=== PATIENT | male | born 1970 | race Caucasian/White ===

== ENCOUNTER 2019-04-10 11:16 | Day surgery (SDC) ==
--- NOTE | 2019-04-04 09:17 | EKG Report ---
Test Performed on : 04/04/2019 09:00:28 AM Test Reason : PAT Blood Pressure : / mmHG Vent. Rate : 070 BPM Atrial Rate : 070 BPM P-R Int : 188 ms QRS Dur : 088 ms QT Int : 382 ms P-R-T Axes : 050 -02 033 degrees QTc Int : 412 ms Normal sinus rhythm. with sinus arrhythmia. Normal ECG No previous ECGs available Confirmed by Mason SHIRLEY, Kunal ([id number]) on 04/04/2019 4:55:25 PM
[2019-04-04 09:20] LABS: URINE SOURCE CLEAN CATCH
[2019-04-04 09:26] LABS: BASO# 0.06 X1000 (0.0-0.2); BASO% 0.6 % (0.0-0.8); EOS% 3.8 % (0.0-10.0); HEMATOCRIT 50.8 % (42.0-52.0); HEMOGLOBIN 17.1 g/dL (14.0-18.0); IMM GRAN# 0.02 X1000 (0.0-0.04); IMM GRAN% 0.2 % (0.0-0.5); LYMPH% 24.5 % (20.5-51.1); MCH 31.6 PG (27-31); MCHC 33.7 g/dL (33-37); MCV 93.9 FL (81-99); MONO# 0.72 X1000 (0.11-0.59); MONO% 6.8 % (1.7-9.3); MPV 8.9 FL (7.4-10.4); NEUT# 6.83 X1000 (1.4-6.5); NEUT% 64.1 % (42.2-75.2); PLT 307 X1000 (130-400); RBC 5.41 XMIL (4.7-6.1); RDW 13.2 % (11.5-14.5); WBC 10.63 X1000 (4.8-10.8)
[2019-04-04 09:31] LABS: BILIRUBIN URINE NEGATIVE (NEGATIVE); BLOOD URINE NEGATIVE (NEGATIVE); COLOR YELLOW; GLUCOSE URINE NEGATIVE (NEGATIVE); KETONE URINE NEGATIVE (NEGATIVE); LEUKOCYTES URINE NEGATIVE (NEGATIVE); NITRITE URINE NEGATIVE (NEGATIVE); PH URINE 5.5; PROTEIN URINE NEGATIVE (NEGATIVE); SP GRAVITY URINE 1.015; TURBIDITY URINE CLEAR (CLEAR); UROBILINOGEN URINE NORMAL (NORMAL)
[2019-04-04 09:33] LABS: UR EPITHELIAL CELLS <10 /HPF (<10); URINE BACTERIA NEGATIVE /HPF; URINE RBC <10 /HPF (<10); URINE WBC <10 /HPF (<10)
[2019-04-04 09:38] LABS: INR 0.99; PROTIME 13.2 Seconds (11.0-16.0)
[2019-04-04 09:39] LABS: PTT 29.4 Seconds (22.3-41.8)
[2019-04-04 10:28] LABS: AGAP 16; BUN 15 mg/dL (8-22); CALCIUM 9.5 mg/dL (8.8-10.2); CHLORIDE 100 mmol/L (98-107); COSMO 278; CREATININE 1.1 mg/dL (0.7-1.2); ESTIMATED GFR > 60; GLUCOSE 99 mg/dL (70-104); POTASSIUM 4.5 mmol/L (3.5-5.1); SODIUM 139 mmol/L (136-145); TCO2 23 mmol/L (25-35)
[2019-04-04 11:47] LABS: HEMOGLOBIN A1C 5.7 % (4.8-6.0)
[2019-04-10] MEDS ORDERED: XYLOCAINE-MPF 2% ONE ×2 (11:34→13:01)
[2019-04-10] MEDS ORDERED: DIPRIVAN 1% ONE ×3 (11:34→15:46)
[2019-04-10] MEDS ORDERED: LYRICA ONE (12:05)
[2019-04-10] MEDS ORDERED: REGLAN ONE (12:05)
[2019-04-10] MEDS ORDERED: PEPCID ONE (12:05)
[2019-04-10] MEDS ORDERED: LR 1,000 ML ONE (12:05)
[2019-04-10] MEDS ORDERED: KEFZOL 1 GM/D5W 2 GM/100 ML IVPB ONE (12:05)
[2019-04-10] MEDS ORDERED: CELEBREX ONE (12:05)
[2019-04-10] MEDS ORDERED: COLACE ONE (12:05)
[2019-04-10] MEDS ORDERED: DIPRIVAN 1% 500 MG/50 ML BOTTLE ONE (12:54)
[2019-04-10] MEDS ORDERED: DURAMORPH ONE (12:56)
[2019-04-10] MEDS ORDERED: SENSORCAINE-MPF 0.5%/EPI 1:200,000 ONE (12:57)
[2019-04-10] MEDS ORDERED: VANCOMYCIN ONE (12:57)
[2019-04-10] MEDS ORDERED: SODIUM CHLORIDE 0.9% ONE (12:57)
[2019-04-10] MEDS ORDERED: TORADOL ONE (12:57)
[2019-04-10] MEDS ORDERED: EXPAREL 1.3% ONE (12:58)
[2019-04-10] MEDS ORDERED: NEOSPORIN G.U. IRRIGANT ONE (12:58)
[2019-04-10] MEDS ORDERED: VERSED ONE ×2 (12:59→13:07)
[2019-04-10] MEDS ORDERED: MARCAINE 0.5% PF ONE (13:02)
[2019-04-10] MEDS ORDERED: CYKLOKAPRON 1,000 MG/NS 2,000 MG/200 ML IVPB ONE (13:16)
[2019-04-10] MEDS ORDERED: FENTANYL ONE (13:22)
[2019-04-10] MEDS ORDERED: OFIRMEV 1000 MG/ISOTONIC SOLN 1,000 MG/100 ML BOTTLE ONE (13:39)
[2019-04-10] MEDS ORDERED: ZOFRAN ONE (13:39)
[2019-04-10] MEDS ORDERED: DECADRON ONE (13:39)
[2019-04-10] MEDS ORDERED: EPHEDRINE ONE (14:02)
[2019-04-10] MEDS ORDERED: D5W 1,000 ML ONE (16:56)
[2019-04-10] MEDS ORDERED: ZOFRAN IV PRN (17:30)
[2019-04-10] MEDS ORDERED: MORPHINE IV PRN ×3 (17:30)
[2019-04-10] MEDS ORDERED: OXY IR PO PRN ×2 (17:30)
[2019-04-10] MEDS ORDERED: ZOFRAN PO PRN (17:30)
[2019-04-10] MEDS ORDERED: D5W 1,000 ML IV SCH (17:45)
[2019-04-10] MEDS ORDERED: FLU VACCINE IM ONE (18:12)
[2019-04-10] MEDS: ULTRAM PO SCH (18:33)
[2019-04-10 18:58] LABS: URINE SOURCE CATH
[2019-04-10 19:02] LABS: BILIRUBIN URINE NEGATIVE (NEGATIVE); BLOOD URINE NEGATIVE (NEGATIVE); COLOR YELLOW; GLUCOSE URINE NEGATIVE (NEGATIVE); KETONE URINE NEGATIVE (NEGATIVE); LEUKOCYTES URINE NEGATIVE (NEGATIVE); NITRITE URINE NEGATIVE (NEGATIVE); PROTEIN URINE NEGATIVE (NEGATIVE); SP GRAVITY URINE 1.018; TURBIDITY URINE CLEAR (CLEAR); UROBILINOGEN URINE NORMAL (NORMAL)
[2019-04-10 19:03] LABS: UR EPITHELIAL CELLS <10 /HPF (<10); URINE BACTERIA NEGATIVE /HPF; URINE RBC <10 /HPF (<10); URINE WBC <10 /HPF (<10)
[2019-04-10] MEDS: PERIDEX MT SCH (20:45)
[2019-04-10] MEDS: TYLENOL PO SCH (20:46)
[2019-04-10] MEDS: CELEBREX PO SCH (20:46)
[2019-04-10] MEDS: LYRICA PO SCH (20:47)
[2019-04-10] MEDS: COLACE PO SCH (20:47)
[2019-04-10] MEDS: KEFZOL 2 GM/D5W 2 GM/50 ML IVPB IV SCH (20:49)
[2019-04-11] MEDS: ULTRAM PO SCH ×2 (00:02→05:25)
[2019-04-11] MEDS: KEFZOL 2 GM/D5W 2 GM/50 ML IVPB IV SCH (05:25)
[2019-04-11] MEDS: TYLENOL PO SCH (05:26)
[2019-04-11] MEDS ORDERED: ASPIRIN PO SCH (06:00)
[2019-04-11 07:26] LABS: HEMATOCRIT 45.6 % (42.0-52.0); HEMOGLOBIN 14.9 g/dL (14.0-18.0)
--- NOTE | 2019-04-11 08:14 | ORTHOPAEDICS PROGRESS NOTE ---
DATE: 04/11/2019 SUBJECTIVE: No acute events. The patient is awake and alert in his room. He states he is having no pain in the knee from surgery. His IceMan machine is running. He is able to do straight leg raise. OBJECTIVE: Vital Signs: Afebrile. Vital signs stable. Extremities: Examination of the right lower extremity shows Brad wrap and surgical dressing to be clean, dry, and intact. Thigh and calf are soft and compressible. He is able to do a straight leg raise. He is able to actively bend his knee to 90 degrees. IceMan machine is in place. Motor is intact, EHL, tibialis anterior, gastrocsoleus complex. Sensation intact to light touch, L3-S1. Dorsalis pedis pulses palpable and equal bilaterally. ASSESSMENT: A 48-year-old male status post right knee unicompartmental arthroplasty. PLAN: 1. The patient will be weightbearing as tolerated, right lower extremity. Physical Therapy to work with him in the morning on ambulation and gait training. 2. IceMan machine at all times. 3. Advance to regular diet. 4. 24 hours of Ancef. 5. Aspirin for DVT prophylaxis. LIDYA hose will also be placed and worn at all times for the first 2 weeks. 6. Disposition. The patient will plan on being discharged to home tomorrow morning after therapy if he is doing well. Will discontinue Contreras catheter in the morning. Further recommendations to follow.
[2019-04-11 08:29] LABS: AGAP 17; BUN 14 mg/dL (8-22); CALCIUM 9.3 mg/dL (8.8-10.2); CHLORIDE 98 mmol/L (98-107); COSMO 276; CREATININE 1.1 mg/dL (0.7-1.2); ESTIMATED GFR > 60; GLUCOSE 166 mg/dL (70-104); POTASSIUM 4.4 mmol/L (3.5-5.1); SODIUM 136 mmol/L (136-145); TCO2 21 mmol/L (25-35)
[2019-04-11 08:32] VITALS: BP 116/62
--- NOTE | 2019-04-11 08:34 | OPERATIVE NOTE ---
PROCEDURE DATE: 04/10/2019 PREOPERATIVE DIAGNOSIS: Right knee anterior medial osteoarthritis. POSTOPERATIVE DIAGNOSIS: Right knee anterior medial osteoarthritis. PROCEDURE PERFORMED: Right knee unicompartmental knee arthroplasty. SURGEON: Silas Carrington M.D. BREAST SPLITTER: Janneth Shipman. ANESTHESIA: Spinal with an adductor canal block. COMPLICATIONS: None. SPECIMENS: None. DRAINS: None. BLOOD LOSS: 100 mL. IMPLANTS: Biomet [place] partial knee arthroplasty system was used with a size D right medial tibial tray, a large twin peg femoral component, with a large size 4 mm thick meniscal bearing. INDICATIONS FOR PROCEDURE: Mr. Cummings is a 48-year-old gentleman who has been followed in clinic for complaints of right knee pain. He tried and failed conservative treatment modalities, including physical therapy, injections, and oral anti-inflammatories. MRI was done showing a medial meniscal root tear, as well as x-rays and MRI findings of [id number] anteromedial osteoarthritis. His ACL was found to be intact. He had a small area of lateral condyle fissuring. However, no full-thickness cartilage loss in the lateral compartment. Stress x-rays taken in the office demonstrated maintenance of lateral joint space and correction of his varus deformity. Given all of these findings and his age, the decision was made to proceed with partial versus total knee arthroplasty. Risks, benefits, and alternative therapies were discussed with the patient regarding surgery. Risks of surgery, include but are not limited to, risks of bleeding, infection, damage to nerves and vessels around the area, continued pain following surgery, dislocation of the bearing, and need for revision surgery. There is also a risk of anesthesia, including blood clot, stroke, heart attack, and even . The patient understands these risks. All questions were answered. Informed consent was obtained. PROCEDURE IN DETAIL: Mr. Cummings was identified by wristband, and greeted in the preop holding area on 04/10/2019. His right lower extremity, which was the operative site, was marked with indelible ink per [facility] Sign Your Site protocol. Following this, the patient was transferred back to the operating room for surgery. Upon entering the OR, adductor canal block as well as spinal anesthetic was placed. The patient was then placed in the supine position on the Skytron table. All bony prominences were well padded. The right lower extremity was then prepped and draped in routine sterile fashion. Formal time-out was performed, confirming correct patient, procedure, operative site, operative side, administration of preop antibiotics. Everyone was in agreement. The patient received 2 grams of Ancef prior to incision. Esmarch was used to exsanguinate the right lower extremity, and tourniquet was elevated to 300 mmHg. Total tourniquet time was 1 hour and 50 minutes. At this time, a 10 blade knife was used to make a standard longitudinal incision just over the medial aspect, just medial to the midline, going from the middle of the patella distal to the tibial tubercle. Knife was used to dissect through skin and subcutaneous tissue. Full-thickness flaps were then made around the patellar retinaculum. At this time, a fresh 10 blade knife was then used to make our medial parapatellar arthrotomy. Knife was used to excise fat pad that was blocking the medial compartment. Once this was done, the anterior horn of the meniscus was excised. A minimal release was performed of the retinaculum off the anterior aspect of the tibia to allow good visualization of the medial compartment. At this time, a 90-degree Z retractor was then placed around the lateral femoral condyle, and the knee was slightly extended to allow inspection of the lateral compartment. The patient was found to have a small area of partial-thickness cartilage loss on his lateral femoral condyle. His lateral tibial plateau articular surface is fully intact. Lateral condyle area was probed and found to be stable and not probed down to bone. Patellofemoral joint was also inspected and found to have a small surrounding osteophyte with grade 1 and 2 changes to the cartilage. However, cartilage was stable. He had no signs of full-thickness cartilage loss around the lateral trochlear or lateral patellar facet. The ACL was also inspected and found to be competent on exam. Given these findings, the decision was made to proceed with partial knee replacement. We started with our tibial preparation. A size large femoral spoon was placed in the joint and found to have appropriate fit. Our extramedullary tibial guide was then attached down by the ankle, and our size 3 G clamp was then placed on the femoral spoon and attached to the tibial guide. Once this set our alignment and a 7-degree posterior slope cut, it was then pinned in position with a single pin. We then used a reciprocating saw to make our vertical cut, hugging the insertion of the ACL on the medial aspect of the apex of the medial tibial spine. Care was taken to ensure the cut was made in line with ASIS. We also made sure not to plunge posteriorly or to lift our hand, which could cause a stress riser in a deep cut. Once the vertical cut was made, we then placed a liam on the guide, and performed our horizontal cut. MCL retractor was used to protect the MCL at all times. Once this was done, Tony was used to pull out our tibial cut, which was found to be of appropriate thickness. The patient was found to have [id number] arthritic changes in the anteromedial compartment. The tibial cut was then sized and found to be a size D. Once this was done, we turned our attention to the femur. Our drill guide for the femur set on size 3 was inserted and found to be a little bit tight. Given these findings, we proceeded with taking an additional 2 mm off the tibia. At this time, we then placed our intramedullary junaid 1 cm superior and 3 mm medial to the intercondylar notch and Whitesides line. Intramedullary junaid was then impacted in position. We then used the Formattafork tool to set the position of the femoral drill guide to ensure 10 degrees of flexion and 7 degrees of valgus alignment. When we were satisfied with this, a 4 mm drill was then taken and left in position, followed by a 6 mm drill hole. Following this, the drill guide was removed. We then proceeded with using a rongeur to remove all surrounding osteophytes from the femur. A 0 spigot was then placed in the 6 mm hole, and our Milling reamer was then used to mill a size 0. Prior to the milling, we impacted our posterior condylar guide in place, and used a sagittal saw to make our posterior condylar cut in routine fashion. Once this was done, we then milled a size 0 spigot. Femoral trial was impacted in position, followed by placement of the tibial tray, and our feeler gauges were then used. The patient was found to have good fit with the size 4 feeler gauge in 90 degrees of flexion, and a size 1 in 20 degrees of extension. Given these findings, we then placed a size 3 spigot and milled this. We then re-trialed and were still found to be a little bit tight in extension, so we placed a size 4 spigot, reaming 1 more mm off the femur. Once this was done, again trial implants and feeler gauges were used, and we were satisfied with our flexion and extension gaps with these cuts. At this time, the trial implants were removed, and our femoral impingement guide was impacted in position. A posterior osteotome was then used to remove posterior condylar osteophytes, followed by the milling tool to prevent anterior impingement. The impingement guide was then removed. We then turned our attention to cutting our keel in the tibia using the keel saw in routine fashion. Care was taken to ensure that there was no posterior overhang of our implant when cutting the keel. Once this was done, the wound was copiously irrigated with normal saline. We again placed all trial implants with the trial poly, and took the knee through range of motion. The knee was found to have appropriate 1 mm gapping with valgus stress at 20 degrees of extension and 100 degrees of flexion. X-ray was then taken of the knee in AP and lateral views to confirm placement of implants. At this time, all trials were removed. Then, 30 mL of our Exparel cocktail injection were then injected around the posterior capsule and around the femoral periosteum. At this time, final implants were opened on the back table, and cement was mixed using 1 bag of Biomet cement plus 1 gram of vancomycin. Once all bone ends were then irrigated with Pulsavac stand in copiously. We proceeded with cementing our implants, starting with our tibial tray using the microscope impaction tool. The cement hook was then used to remove any excess cement posteriorly. We then cemented our femoral component in routine fashion, followed by placement of a size 4 feeler gauge. Knee was then placed in 45 degrees of extension, and pressure was applied until cement cured. Once cement was hard, the feeler gauge was removed, and our trial poly was again placed, and the knee was taken through range of motion and found to be stable. We then removed the trial, and opened our final size 4 mm bearing, and placed this in a routine fashion. One last time, the knee was again taken through range of motion and found to be stable. We then poured 0.35 solution of Betadine and saline into the knee and allowed this to soak for 3 minutes. Following this, the knee was copiously irrigated with normal saline. The remainder of our Exparel cocktail injection was injected around the patellar retinaculum, vastus medialis obliquus, and other deep soft tissues. Our skin injection was then injected in the subcutaneous tissue. At this time, a lap was packed in the knee, and Esmarch was wrapped around the knee, and tourniquet was deflated. Total tourniquet time was an hour and 50 minutes. Bovie cautery was then used to obtain hemostasis. The patient had minimal bleeding around the knee. At this time, we proceeded with closure of our arthrotomy using some #1 Vicryl interrupted sutures, followed by V-Loc barbed suture for closure of the arthrotomy. Subcutaneous tissue was then closed with 2-0 Vicryl sutures, followed by 3-0 Monocryl for skin closure. Dermabond was then used on the skin. Once this was secured, a Silverlon dressing was placed. The leg was then wrapped with Brad wrap from the foot up to the thigh. IceMan machine was placed. At this time, the patient was then awoken, transferred to his hospital stretcher, and taken to recovery in stable condition. There were no acute complications noted during the procedure. All sponge and sharp counts were correct at the conclusion of the procedure.
[2019-04-11] MEDS ORDERED: PEPCID PO SCH (09:00)
[2019-04-11] MEDS: COLACE PO SCH (09:37)
[2019-04-11] MEDS: LYRICA PO SCH (09:37)
[2019-04-11] MEDS: PERIDEX MT SCH (09:37)
[2019-04-11] MEDS: CELEBREX PO SCH (09:37)
--- NOTE | 2019-04-11 15:13 | ORTHOPAEDICS PROGRESS NOTE ---
DATE: 04/11/2019 SUBJECTIVE: No acute events overnight. Pain is well controlled. He has not required any narcotic pain medicine. He is tolerating a diet. He is doing well overall. OBJECTIVE: Hematocrit 46.Vital signs: Afebrile. Vital signs stable. Extremities: Examination of the right lower extremity shows surgical dressing and Brad wrap to be clean, dry, intact. Thigh and calf soft and compressible. He is able to straight leg raise and actively flex and extend his knee. Neurovascularly intact. ASSESSMENT: A 48-year-old male status post right partial knee arthroplasty. Postoperative day 1. PLAN: 1. Patient can be weightbearing as tolerated to right lower extremity. PT mobilize this morning. 2. Iceman to right lower extremity for pain. 3. Aspirin for DVT prophylaxis. Patient will also have bilateral thigh-high LIDYA hose placed prior to discharge, which he should wear at all times for 2 weeks. 4. Finish 24 hours of Ancef. DISPOSITION: Discharge home this morning after physical therapy and antibiotics are administered. Will need Case Management to set up outpatient physical therapy for his knee replacement. I will see him in the clinic in 10 to 14 days for a wound check and x-rays.
--- NOTE | 2019-04-13 08:24 | DISCHARGE SUMMARY ---
ADMISSION DATE: 04/10/2019 DISCHARGE DATE: 04/11/2019 ADMISSION DIAGNOSIS: Right knee medial compartment osteoarthritis. DISCHARGE DIAGNOSIS: Right knee medial compartment osteoarthritis. PROCEDURE: Right unicompartmental knee arthroplasty done by me on 04/10/2019. CONSULTATIONS: None. COMPLICATIONS: None. BRIEF HOSPITAL COURSE MR: Mr. Cummings is a 48-year-old gentleman with right knee medial compartment osteoarthritis. He has tried and failed conservative modalities and wished to proceed with a partial versus total knee replacement. Risks, benefits, alternative therapies were discussed with the patient regarding surgery. All questions were answered. Informed consent was obtained. The patient presented to [facility] on 04/10/2019 to undergo the above procedure. He tolerated the surgery well with no complications. Postoperatively, he was admitted to the floor for observation and physical therapy. On postoperative day 1, patient mobilized over 250 feet with therapy with no issues. His pain was well controlled on p.o. pain medication, he was tolerating diet. Patient was thus discharged on 04/11/2019. DISPOSITION: Discharged home. CONDITION: Stable. ACTIVITY: Weightbearing as tolerated to the right lower extremity. MEDICATIONS: Per chart. DISCHARGE INSTRUCTIONS: 1. Patient is to keep his Silverlon dressing clean, dry and intact until follow-up appointment. I am okay with him taking a shower and washing around the wound dressing. No soaking in water bath. 2. Patient is to work with outpatient physical therapy starting tomorrow as previously scheduled and instructed. 3. The patient is to take aspirin 325 mg daily x6 weeks for DVT prophylaxis. He will also wear thigh high LIDYA hose at all times for the 1st 2 weeks. 4. I will plan on seeing him in clinic in 2 weeks with x-rays and follow-up. 5. The patient should return to the ER with any acute onset chest pain, shortness of breath, fever greater 101.5 degrees, drainage from surgical incision.
== END 2019-04-11 10:58 | disposition home or self-care (01) ==
LOC: PAT 11:16 → 4N 11:16 → PAT 04-11 10:58
PROVIDERS: ATTEND Orthopaedic Surgery Sports Medicine